=== PATIENT | male | born 1955 | race Caucasian/White ===

== ENCOUNTER 2016-08-20 05:09 | Inpatient (IN) | payer OTHER ==
[~2016-08-20] VITALS: Ht 188 cm; Wt 93.6 kg
[~2016-08-20 05:09] MED LIST: ALLEGRA ALLERG180 MG PO; ALLEGRA180 MG PO; CALCIUM PO; Flexeril PO; LIPITOR40 MG PO; LO-DOSE ASPIRIN81 M1 PO; MOBIC7.5 MG PO; NAPROSYN500 MG PO; Neurontin PO; Osteo-Biflex,Flex-A- PO; PROZAC40 MG PO; PROzac PO; Saw Palmetto PO; Theragran PO; Ultram PO; VITAMIN D35000 UNIT PO; Vicodin,Norco 5/325 PO; ZESTRIL10 MG PO; Zestril,Prinivil PO
[2016-08-20 06:03] VITALS: BP 131/90
[2016-08-20] MEDS ORDERED: COUMADIN2.5 MG PO (10:18)
[2016-08-20] MEDS ORDERED: PERCOCET 5/31 TABLET PO (10:18)
[2016-08-20] MEDS ORDERED: PT/INR (10:18)
[2016-08-20] MEDS ORDERED: VISTARIL25 MG PO (10:18)
[2016-08-20 12:19] VITALS: BP 120/71
[2016-08-20 15:46] VITALS: BP 113/70
[2016-08-20 19:13] VITALS: BP 99/61
[2016-08-20 21:40] VITALS: BP 103/59
[2016-08-21 00:27] VITALS: BP 106/63
[2016-08-21 04:25] VITALS: BP 120/70
[2016-08-21 06:44] LABS: HEMATOCRIT 38.3 % (38.0-50.0); MCV 91.4 FL (86-99)
[2016-08-21 06:55] LABS: INTER. NORMALIZED RATIO 1.1; PROTHROMBIN TIME 10.8 (9.2-11.2)
[2016-08-21 07:26] LABS: ANION GAP 8 MEQ/L (2-14); CHLORIDE 95 MEQ/L (99-109); GFR ESTIMATE (CALCULATED) > 59 mL/min/; GLUCOSE 117 mg/dL (70-99); POTASSIUM 4.1 MEQ/L (3.7-5.4); SAMPLE HEMOLYSIS CHECK 0; SAMPLE ICTERIC CHECK 0; SAMPLE LIPEMIA CHECK 0; SODIUM 131 MEQ/L (136-147); UREA NITROGEN (BUN) 16 mg/dL (9-23)
[2016-08-21 08:00] VITALS: BP 125/68
[2016-08-21 15:56] VITALS: BP 135/79
[2016-08-21 20:15] VITALS: BP 124/78
[2016-08-22 00:11] VITALS: BP 118/75
[2016-08-22 04:10] VITALS: BP 120/74
[2016-08-22 06:17] LABS: PROTHROMBIN TIME 20.3 (9.2-11.2)
[2016-08-22 06:26] LABS: HEMATOCRIT 31.9 % (38.0-50.0); MCV 90.1 FL (86-99)
[2016-08-22 08:00] VITALS: BP 136/86
[2016-08-22 11:42] VITALS: BP 127/78
[2016-08-22 13:31] VITALS: BP 126/66
== END 2016-08-22 13:40 | DRG 470 ==
LOC: 2SOUTH 05:09 → SDC 10:26 → EDSTATUS 10:26 → 2SOUTH 10:27 → 3WEST 11:53 → 2SOUTH 15:42 → 3WEST 08-22 13:40
PROVIDERS: Orthopaedic Surgery
PROC: 0SRC0J9 Replacement of Right Knee Joint with Synthetic Substitute, Cemented, Open Approach (ICD-10-PCS; principal; 2016-08-20)
DX: M17.11 Unilateral primary osteoarthritis, right knee (principal); M71.21 Synovial cyst of popliteal space [Baker], right knee; I10 Essential (primary) hypertension; E78.5 Hyperlipidemia, unspecified; F32.9 Major depressive disorder, single episode, unspecified
CPT/HCPCS: 80048; 85014; 85018; 85610; 97530 GP; C1713; J0131; J0690; J1885; J2250; J2405; J7050; J7120